=== PATIENT | male | born 1990 | race Caucasian/White ===

== ENCOUNTER 2019-05-03 06:07 | Emergency (ER) | payer MEDICAID ==
[~2019-05-03] VITALS: Ht 180.3 cm; Wt 108.9 kg
[2019-05-03 06:15] VITALS: BP_SYST 145
--- NOTE | 2019-05-03 06:15 | NUR ---
Pt ambulatory to bed 8 for evaluation
--- NOTE | 2019-05-03 06:40 | NUR ---
ER at bedside examining patient.
[2019-05-03] MEDS ORDERED: KETOROLAC TROMETHAMINE 30 MG VIAL IM ONE (06:45)
--- NOTE | 2019-05-03 06:45 | NUR ---
Pt brought in by friend. pt awake, alert, oriented x4. pt states that he has had R shoulder, arm, collarbone pain 10/10 for past few days with increasing severity. Pt states that he has extensive history of chronic pain. Pt denies chest pain, nausea, vomiting, diarrhea, no shortness of breath. Pt denies any other medical complaint at this time. Pt resting in ed bed comfortably. Pt Vss.
[2019-05-03] MEDS ORDERED: NACL 0.9% 1,000 ML IV ONE (07:30)
[2019-05-03 07:37] LABS: CALCIUM 8.8 mg/dL (8.4-11.0); CREATININE 0.65 mg/dL (0.55-1.30)
[2019-05-03 07:45] LABS: ALBUMIN 4.1 g/dL (3.4-4.8); TOTAL BILIRUBIN 0.4 mg/dL (0.0-1.0)
[2019-05-03 07:48] LABS: BILIRUBIN,URINE NEGATIVE (NEGATIVE); BLOOD, URINE NEGATIVE (NEGATIVE); CLARITY/URINE CLEAR (CLEAR); COLOR,URINE YELLOW (YELLOW); GLUCOSE,URINE 3+ (NEGATIVE); KETONES,URINE NEGATIVE (NEGATIVE); LEUKOCYTE ESTERASE ,URINE NEGATIVE (NEGATIVE); NITRITE, URINE NEGATIVE (NEGATIVE); PROTEIN URINE NEGATIVE (NEGATIVE); UROBILINOGEN,URINE 0.2 (0.2-1.0)
[2019-05-03 08:01] LABS: BARBITURATE, URINE NEGATIVE (NEG <=200); BENZODIAZEPINE, URINE POSITIVE (NEG <=150); CANNABINOID, URINE NEGATIVE (NEG <=50); COCAINE, URINE POSITIVE (NEG <=150); METHAMPHETAMINES SCREEN,URINE NEGATIVE (NEG <=500); OPIATE, URINE NEGATIVE (NEG <=100); PHENCYCLIDINE SCREEN,URINE NEGATIVE (NEG <=25); UR TRICYCLIC ANTIDEPRESSANTS NEGATIVE (NEG <=300); URINE AMPHETAMINE NEGATIVE (NEG <=500); URINE METHADONE NEGATIVE (NEG <=200); URINE OXYCODONE SCREEN NEGATIVE (NEG <=100); URINE PROPOXYPHENE SCREEN NEGATIVE (NEG <=300)
[2019-05-03 08:11] LABS: BACTERIA,URINE FEW /HPF (None Seen); RBC,URINE 0-3 /HPF (0-3); WBC,URINE 0-3 /HPF (0-3)
[2019-05-03 08:40] VITALS: BP_SYST 145
--- NOTE | 2019-05-03 08:43 | NUR ---
Patient given written and verbal discharge instructions and verbalizes understanding. ER MD discussed with patient the results and treatment provided. Patient in stable condition. ID arm band removed. IV catheter removed intact and dressing applied, no active bleeding. Rx of naproxen given. Patient educated on pain management and to follow up with PMD. Pain Scale 1. Opportunity for questions provided and answered. Medication side effect fact sheet provided.
== END 2019-05-03 08:40 | disposition home or self-care (01) ==
LOC: SED 06:07
DX: S46.911A Strain of unspecified muscle, fascia and tendon at shoulder and upper arm level, right arm, initial encounter (principal); F14.10 Cocaine abuse, uncomplicated; I10 Essential (primary) hypertension; E11.9 Type 2 diabetes mellitus without complications; X58.XXXA Exposure to other specified factors, initial encounter; Y93.89 Activity, other specified; Y92.89 Other specified places as the place of occurrence of the external cause; Y99.8 Other external cause status
CPT/HCPCS: 36415; 73030; 80053; 80307; 81000; 84484; 93005; 96372; 99284; J1885; J7030

== ENCOUNTER 2019-12-19 11:50 | Emergency (ER) | payer MEDICAID ==
[~2019-12-19] VITALS: Ht 180.3 cm; Wt 111.1 kg
[2019-12-19 11:59] VITALS: BP_SYST 147
[2019-12-19 12:30] VITALS: BP_SYST 132
== END 2019-12-19 12:30 | disposition home or self-care (01) ==
LOC: SED 11:50
DX: R10.9 Unspecified abdominal pain (principal); I10 Essential (primary) hypertension; E11.9 Type 2 diabetes mellitus without complications; Z86.73 Personal history of transient ischemic attack (TIA), and cerebral infarction without residual deficits
CPT/HCPCS: 99281

== ENCOUNTER 2020-05-05 06:43 | Emergency (ER) | payer MEDICAID ==
[~2020-05-05] VITALS: Ht 180.3 cm; Wt 108.9 kg
[2020-05-05 07:12] VITALS: BP_SYST 137
--- NOTE | 2020-05-05 07:15 | NUR ---
sent to no beds in er
--- NOTE | 2020-05-05 09:00 | NUR ---
LWBS AT THIS TIME.
--- NOTE | 2020-05-08 09:00 | NUR ---
[facility] in [facility] - 05/14/20 at 1421 by [facility] LWBS AT THIS TIME.
== END 2020-05-05 09:00 | disposition left against medical advice (07) ==
LOC: SED 06:43
DX: R10.13 Epigastric pain (principal); Z53.21 Procedure and treatment not carried out due to patient leaving prior to being seen by health care provider

== ENCOUNTER 2020-11-15 02:00 | Emergency (ER) | payer MEDICAID ==
[~2020-11-15] VITALS: Ht 180.3 cm; Wt 104.3 kg
[2020-11-15 02:15] VITALS: BP_SYST 128
[2020-11-15 03:29] VITALS: BP_SYST 136
== END 2020-11-15 03:29 ==
LOC: SED 02:00
DX: Z13.1 Encounter for screening for diabetes mellitus (principal); E11.9 Type 2 diabetes mellitus without complications; I10 Essential (primary) hypertension; F14.90 Cocaine use, unspecified, uncomplicated
CPT/HCPCS: 82962; 99283

== ENCOUNTER 2020-11-23 19:50 | Emergency (ER) | payer MEDICAID ==
[~2020-11-23] VITALS: Ht 167.6 cm; Wt 117.9 kg
[2020-11-23 19:50] VITALS: BP_SYST 167
--- NOTE | 2020-11-23 19:58 | NUR ---
Placed in room 07 . Placed on residential monitor, blood pressure machine and pulse oximeter. To gown for exam. Side rails up.
--- NOTE | 2020-11-23 20:01 | NUR ---
Pt BIB family to ED with history of hypertension ambulatory to the emergency department with a chief complaint of a possible stress reaction with associated palpitations shortness of breath and transient chest pain described as tightness. She reports feeling lots of stress lately at home . Patient states that 45 minutes prior to arrival he began to feel chest palpitations and chest pain. Patient reports that he drank a Monster earlier this morning. Patient denies dizziness, diaphoresis, nausea, feeling lightheaded at the onset of his chest pain and shortness of breath. Patient denies prior episodes of similar. Patient denies any exertional component or pleuritic component
--- NOTE | 2020-11-23 20:09 | NUR ---
Dr. Philip [facility] for pt eval
[2020-11-23 20:23] LABS: BASOPHILS % (AUTO) 0.6 % (0.0-2.0); EOSINOPHILS % (AUTO) 0.6 % (0.0-4.0); HEMOGLOBIN 14.7 g/dL (14.0-18.0); LYMPHOCYTES # (AUTO) 2.8 K/uL (1.0-5.5); LYMPHOCYTES % (AUTO) 43.1 % (20.5-51.5); MEAN CORPUSCULAR HEMOGLOBIN 30 pg (27-31); MEAN CORPUSCULAR HGB CONC 34 % (32-36); MEAN CORPUSCULAR VOLUME 87 fL (79.0-98.0); MONOCYTES # (AUTO) 0.5 K/uL (0.0-1.0); MONOCYTES % (AUTO) 8.3 % (1.7-9.3); NEUTROPHILS # (AUTO) 3.1 K/uL (1.8-7.7); NEUTROPHILS % (AUTO) 47.4 % (40.0-70.0); PLATELET COUNT (AUTO) 198 K/uL (130-430); RED BLOOD CELL COUNT(AUTO) 4.93 MIL/uL (4.2-6.2); RED CELL DISTRIBUTION WIDTH 13.7 % (9.0-15.0); WHITE BLOOD COUNT (AUTO) 6.5 K/uL (4.8-10.8)
[2020-11-23 20:34] LABS: ANION GAP 13 (5-15); CALCIUM 8.6 mg/dL (8.4-11.0); CHLORIDE 99 mmol/L (98-107); CREATININE 0.84 mg/dL (0.55-1.30); GFR AFRICAN AMERICAN 139 mL/min (>90); GLUCOSE 273 mg/dL (70-99); POTASSIUM 3.2 mmol/L (3.5-5.1); SODIUM SERUM 138 mmol/L (136-145); UREA NITROGEN, BLOOD 9 mg/dL (8-21)
[2020-11-23 20:43] LABS: ALANINE AMINOTRANSFERASE 243 U/L (12-78); ALBUMIN 4.2 g/dL (3.4-4.8); ALCOHOL, BLOOD 101 mg/dL (<10); ASPARTATE AMINOTRANSFERASE 93 U/L (10-37); TOTAL BILIRUBIN 0.3 mg/dL (0.0-1.0)
[2020-11-23 21:12] VITALS: BP_SYST 148
--- NOTE | 2020-11-23 21:12 | NUR ---
Patient given written and verbal discharge instructions and verbalizes understanding. ER MD discussed with patient the results and treatment provided. Patient in stable condition. ID arm band removed. IV catheter removed intact and dressing applied, no active bleeding Patient educated on pain management and to follow up with PMD. Pain Scale 0/10 Opportunity for questions provided and answered.
[2020-11-23 21:13] LABS: INR 1.1 (0.80-1.20); PROTHROMBIN TIME 10.9 SECS (9.5-12.5)
== END 2020-11-23 21:12 | disposition home or self-care (01) ==
LOC: SED 19:50
DX: I10 Essential (primary) hypertension (principal); E11.9 Type 2 diabetes mellitus without complications; F41.9 Anxiety disorder, unspecified; R07.89 Other chest pain
CPT/HCPCS: 36415; 70450; 71046; 76376; 80053; 84484; 85025; 85610; 93005; 99285; G0482

== ENCOUNTER 2021-08-13 04:05 | Emergency (ER) | payer MEDICAID, OTHER ==
[2021-08-13 04:15] VITALS: BP_SYST 138
[2021-08-13 05:07] VITALS: BP_SYST 136
== END 2021-08-13 05:07 | disposition home or self-care (01) ==
LOC: SED 04:05
DX: S61.112A Laceration without foreign body of left thumb with damage to nail, initial encounter (principal); I63.9 Cerebral infarction, unspecified; E11.9 Type 2 diabetes mellitus without complications; I10 Essential (primary) hypertension
CPT/HCPCS: 99281; 99282